=== PATIENT | female | born 1945 | race Caucasian/White ===

== ENCOUNTER → 2020-02-14 | Outpatient (CLI) | payer MEDICARE ==
[~2020-02-14] MED LIST: REGADENOSON 0.4 MG/5 ML DISP.SYRIN. IV ONE
--- NOTE | 2020-02-15 16:44 | RAD ---
MR#: [id number] Date of Study: 02/15/2020 Ordering Physician: HARDIK CHAVEZ, Referring Physician: KRYSTAL MARISCAL Tech: RT Kristal (R) (N) APPROVED REPORT Test Type: Pharmacological Stress Nurse/Tech: DENISA PELAYO Test Indications: CHEST PRESSURE, INDIGESTION Cardiac History: HTN, SMOKER, SEE EMR Medications: SEE EMR Medical History: SEE EMR Resting ECG: SR W/PROLONGED QT Resting Heart Rate: 73 bpm Resting Blood Pressure: 186/91mmHg Pretest Chest Pain: No chest pain Nurse/Tech Notes S1,S2, LUNGS CTA, DENIED CP OR SOA, PT IS ANXIOUS ABOUT THE TEST. Consent: The procedure was explained to the patient in lay terms. Informed consent was witnessed. Ang eout was entered into [employer]. History and Stress Test performed by INO Turk, ARRT (R) (N) Pharm. Details Pharmacologic stress testing was performed using 0.4mg per 5ml of regadenoson given intravenously ove r 7-10 seconds. Stress Symptoms PT'S ONLY COMPLAINT WAS THAT IT WAS DIFFICULT TO GET A DEEP BREATH, SENSATION SUBSIDED WITHIN A COUPL E OF MINUTES. DENIED CP. POST EXERCISE Reason for Termination: Infusion complete Max HR: 102 bpm Max Blood Pressure: 199/80mmHg Blood Pressure response to exercise: Normal blood pressure response during stress. Heart Rate response to exercise: NORMAL HEART RATE RESPONSE DURING STRESS Chest Pain: No. Arrhythmia: . PVC'S NOTED DURING TEST INTERPRETATION Stress EKG Conclusion: The resting EKG shows a sinus rhythm and nonspecific ST-T wave changes. The stress EKG shows no significant changes from baseline. No EKG evidence of stress-induced ischemia. Imaging Protocol IMAGE PROTOCOL: Rest Tc-99m/stress Tc-99m 2 days Rest: Stress: Viability: Radiopharm.Tc99m YudutbodmQa33m Sestamibi Ytmu01yUq 33mCi Duration 15min. 15min. Img Date 02/14/2020 02/15/2020 Inj-Img Virb67tlx. 60min. Rest Admin Site:IV - Right AntecubitalAdministrator:Aida Burnett, RT (R)(N) Stress Admin Site: IV - Left AntecubitalAdministrator: ION Truk, ARRT (R)(N) STRESS DATA End Diast. Vol.93.0mlLVEDV index BSA43.0ml End Syst. Vol.32.0mlLVESV index BSA15.0ml Myocardial Ljmt512.0gEject. Jfzvumil65.0% Stress Scores Regional WT1.00Summed WT5.00 Regional WM0.00Summed WM3.00 LV Perfusion The stress scans show a moderate inferior wall defect. The rest scans show a slight inferior wall defect. Nuclear imaging is consistent with reversible ischemia in the inferior wall. Wall Motion Left ventricular systolic function is normal with an ejection fraction of 66% and an elevated TID of 1.23. LV Perf. Quant 17 Seg. SSS12.00 17 Seg. SRS1.00 17 Seg. SDS11.00 Stress Defect Extent (% LAD)8.80Rest Defect Extent (% LAD)0.00Rev. Defect Extent (% LAD)8.80 Stress Defect Extent (% LCX) 8.80Rest Defect Extent (% LCX)0.00Rev. Defect Extent (% LCX)8.80 Stress Defect Extent (% RCA)65.60Rest Defect Extent (% RCA)0.00Rev. Defect Extent (% RCA)65.60 Stress Defect Extent (% ANTONIETA)27.00Rest Defect Extent (% ANTONIETA)0.00Rev. Defect Extent (% ANTONIETA)27.00 Conclusion 1. No EKG evidence of stress-induced ischemia. 2. Nuclear imaging is positive for reversible ischemia in the inferior wall. 3. Intact LV systolic function with an ejection fraction of 66% but an elevated TID of 1.23. 4. Moderate high risk Lexiscan nuclear stress test. Signed by : Hardik Chavez MD Electronically Approved : 02/15/2020 16:43:46
--- NOTE | 2020-02-15 17:22 | CARD ---
MR#: [id number] Date of Study: 02/15/2020 Ordering Physician: HARDIK CHAVEZ, Referring Physician: HARDIK CHAVEZ, Tech: Carri Kumari APPROVED REPORT EXAM: Two-dimensional and M-mode echocardiogram with Doppler and color Doppler. Other Information Quality : FairHR: 72bpm INDICATION Murmur RISK FACTORS Hypertension Hyperlipidemia Previous smoker (6 months ago) 2D DIMENSIONS RVDd3.6 (2.9-3.5cm)Left Atrium(2D)4.5 (1.6-4.0cm) IVSd1.1 (0.7-1.1cm)Aortic Root(2D)3.1 (2.0-3.7cm) LVDd5.9 (3.9-5.9cm)LVOT Diameter2.1 (1.8-2.4cm) PWd1.2 (0.7-1.1cm)LVDs4.0 (2.5-4.0cm) FS (%) 31.9 %SV101.3 ml LVEF(%)59.1 (>50%) Aortic Valve AoV Peak Pete.200.4cm/sAoV VTI39.1cm AO Peak GR.16.1mmHgLVOT Peak Pete.108.4cm/s LVOT VTI 22.56cmAO Mean GR.9mmHg ABAD (VMAX)1.23zc3YXC (VTI)1.93cm2 AI P 1/2 Jwrj026ed Mitral Valve MV E Psnhzehq38.5cm/sMV E Peak Gr.123mmHg MV DECEL [id number] A Vrmrrcyi387.5cm/s MV E Mean Gr.2mmHgMV ZEN15dl E/A Ratio0.6MVA (PHT)2.27cm2 TDI E/Lateral E'13.0E/Medial E'15.8 Pulmonary Valve PV Peak Yynnjqhh42.2cm/sPV Peak Grad.3mmHg Pulmonary Vein S1 Dllozpcp92.7cm/sD2 Irxphyke08.9cm/s PVa [id number] LEFT VENTRICLE The Left Ventricle is borderline dilated. There is normal left ventricular wall thickness. The systol ic function is mildly impaired. The Ejection Fraction is estimated at 45%. There is slight global hyp okinesis of the left ventricle. Transmitral Doppler flow pattern is Grade I-abnormal relaxation patte rn. RIGHT VENTRICLE The right ventricle is normal size. There is normal right ventricular wall thickness. The right ventr icular systolic function is normal. ATRIA The left atrium size is normal. The right atrium size is normal. The interatrial septum is intact wit h no evidence for an atrial septal defect or patent foramen ovale as noted on 2-D or Doppler imaging. AORTIC VALVE The aortic valve is calcified but opens well. Doppler and Color Flow revealed trace aortic regurgitat ion. Calculated aortic valve area is 1.96 cm2 with maximum pressure gradient of 18 mmHg and mean pres sure gradient of 9 mmHg. There is no significant aortic valvular stenosis. MITRAL VALVE Mitral annular calcification is mild. There is no evidence of mitral valve prolapse. There is no mitr al valve stenosis. Doppler and Color-flow revealed trace to mild mitral regurgitation. TRICUSPID VALVE The tricuspid valve is normal in structure and function. Doppler and Color Flow revealed no tricuspid valve regurgitation noted. There is no tricuspid valve stenosis. PULMONIC VALVE The pulmonic valve is not well visualized. Doppler and Color Flow revealed no pulmonic valvular regur gitation. GREAT VESSELS The aortic root is normal in size. The ascending aorta is normal in size. The IVC is normal in size a nd collapses >50% with inspiration. PERICARDIAL EFFUSION There is no evidence of significant pericardial effusion. Critical Notification Critical Value: No <Conclusion> The Left Ventricle is borderline dilated. The systolic function is mildly impaired. The Ejection Fraction is estimated at 45%. There is slight global hypokinesis of the left ventricle. Doppler and Color Flow revealed trace aortic regurgitation. There is no significant aortic valvular stenosis. Doppler and Color-flow revealed trace to mild mitral regurgitation. Doppler and Color Flow revealed no tricuspid valve regurgitation noted. Signed by : Hardik Chavez MD Electronically Approved : 02/15/2020 17:21:49
== END | disposition home or self-care (01) ==
LOC: NM 08:22
PROVIDERS: ATTEND Internal Medicine Cardiovascular Disease
DX: I08.0 Rheumatic disorders of both mitral and aortic valves (principal); I10 Essential (primary) hypertension; Z87.891 Personal history of nicotine dependence
CPT/HCPCS: 78452; A9500; 93017; 93306; J2785

== ENCOUNTER → 2020-03-06 | Outpatient (CLI) | payer MEDICARE ==
[~2020-03-06] MED LIST changes: +ASPI-630 PO; +LEVO137T3 PO; +LOSA100T14 PO; +MULT-245 PO; +OMEG-117 PO; -REGADENOSON 0.4 MG/5 ML DISP.SYRIN. IV ONE; +SIMV20TA18 PO; +TOPI50TA38 PO
== END ==
LOC: LAB 12:50
PROVIDERS: ATTEND Internal Medicine Cardiovascular Disease
DX: Z01.812 Encounter for preprocedural laboratory examination (principal); Z20.828 Contact with and (suspected) exposure to other viral communicable diseases
CPT/HCPCS: U0003-CS

== ENCOUNTER 2020-03-08 07:19 | Outpatient (CLI) | payer MEDICARE ==
[2020-03-08] VITALS (11 sets, daily range): BP systolic 120–184; BP diastolic 66–85
[~2020-03-08] VITALS: Ht 170.2 cm; Wt 113.4 kg
[2020-03-08] MEDS ORDERED: OMEG-117 PO (07:34)
[2020-03-08] MEDS ORDERED: TOPI50TA38 PO (07:34)
[2020-03-08] MEDS ORDERED: SIMV20TA18 PO (07:34)
[2020-03-08] MEDS ORDERED: ASPI-630 PO (07:34)
[2020-03-08] MEDS ORDERED: LOSA100T14 PO (07:34)
[2020-03-08] MEDS ORDERED: MULT-245 PO (07:34)
[2020-03-08] MEDS ORDERED: LIDOCAINE 1% Multi-Dose 20 ML VIAL. ONE (07:45)
[2020-03-08] MEDS ORDERED: IODIXANOL 320 MG/ML 100 ML VIAL. ONE (07:45)
[2020-03-08] MEDS ORDERED: HEPARIN for ARTERIAL LINE 1,500 ML ONE (07:46)
[2020-03-08 07:49] LABS: HEMATOCRIT 45.7 % (36.0-47.0); HEMOGLOBIN 15.4 g/dL (12.0-15.5); RED BLOOD COUNT 5.03 x10^6/uL (3.50-5.40); WHITE BLOOD COUNT 10.4 x10^3/uL (4.0-11.0)
[2020-03-08 07:57] LABS: CALCIUM 9.7 mg/dL (8.5-10.1); CREATININE 1.2 mg/dL (0.6-1.0); GFR 43.9; POTASSIUM 4.1 mmol/L (3.5-5.1)
[2020-03-08] MEDS ORDERED: VERAPAMIL 5 MG/2 ML VIAL. ONE (08:10)
[2020-03-08] MEDS ORDERED: MIDAZOLAM HCL/PF 2 MG/2 ML VIAL. ONE ×2 (08:10→09:07)
[2020-03-08] MEDS ORDERED: HEPARIN for IV BOLUS 10,000 UNIT/10 ML VIAL. ONE (08:10)
[2020-03-08] MEDS ORDERED: fentaNYL PF VIAL 100 MCG/2 ML VIAL ONE (08:10)
[2020-03-08] MEDS ORDERED: LEVO137T3 PO (08:11)
[2020-03-08] MEDS ORDERED: NITROGLYCERIN 200 MCG/2 ML SYRINGE FOR CATH/VASC LAB. ONE (08:11)
[2020-03-08 08:14] LABS: PROTHROMBIN TIME PATIENT 12.7 SEC (11.7-14.0)
--- NOTE | 2020-03-08 08:48 | PDOC ---
MODERATE SEDATION ASSESSMENT RISKS/ALTERNATIVES Risks/Alternatives Risks and alternatives of this type of sedation and procedure discussed with: RISK/ALTERNATIVES: Patient H & P ON CHART H & P H & P on chart and reviewed for co-morbid conditions and appropriate labs. H&P ON CHART: Yes STATUS PREG STATUS ASSESSED: Yes MEDS/ALLERGIES REVIEWED Meds/Allergies Reviewed Medications and Allergies including time and route of recently administered narcotics and sedatives. MEDS/ALLERGIES REVIEWED: Yes ASA RATING ASA RATING: II AIRWAY ASSESSMENT Airway Assessment Airway patency, oral function limitations, presence of caps, crowns, dentures, partials, and ability to extend neck assessed. AIRWAY ASSESSMENT: Yes MALLAMPATI SCORE MALLAMPATI SCORE: II PRE-SEDATION ASSESSMENT PRE-SEDATION ASSESSMENT: Yes HARDIK PEACOCK MD Mar 08, 2020 08:48
[2020-03-08] MEDS ORDERED: IODIXANOL 320 MG/ML 100 ML VIAL. IART ONE (09:30)
[2020-03-08] MEDS ORDERED: HEPARIN for IV BOLUS 10,000 UNIT/10 ML VIAL. IART ONE (09:30)
[2020-03-08] MEDS ORDERED: MIDAZOLAM HCL/PF 2 MG/2 ML VIAL. IV ONE (09:30)
[2020-03-08] MEDS ORDERED: LIDOCAINE 1% Multi-Dose 20 ML VIAL. INJ ONE (09:30)
[2020-03-08] MEDS ORDERED: fentaNYL PF VIAL 100 MCG/2 ML VIAL IV ONE (09:30)
[2020-03-08] MEDS ORDERED: VERAPAMIL 5 MG/2 ML VIAL. IART ONE (09:30)
[2020-03-08] MEDS ORDERED: NITROGLYCERIN 200 MCG/2 ML SYRINGE FOR CATH/VASC LAB. IART ONE (09:30)
--- NOTE | 2020-03-08 13:30 | NUR ---
Discharge Note: MENA BYRD Discharge instructions and discharge home medications reviewed with Family Member and a copy given. All questions have been answered and understanding verbalized. Patient ate lunch with no difficulties. The following instructions and handouts were given: Moderate sedation, radial site care and cardiac diet. Discontinued lines and drains: Left Forearm PIV, dressing clean dry intact. Patient discharged to home with son via wheelchair to private vehicle. Dr. Benedict will call patient on Wednesday, March 11 with instruction for Open Heart surgery to be done at [facility].
--- NOTE | 2020-03-08 16:43 | CARD ---
MR#: [id number] Date of Study: 03/08/2020 Ordering Physician: HARDIK CHAVEZ, Referring Physician: HARDIK CHAVEZ, Tech: FEDERICO ORTIZYOHANNESROSA M RTR APPROVED REPORT Procedures Left heart catheterization Selective left ventriculogram Selective coronary angiogram The patient is a 74-year-old female with a history of hypertension and hyperlipidemia. Her work-up s howed an echo with mildly decreased LV systolic function with an ejection fraction of 45% and trace t o mild mitral regurgitation. A nuclear stress test showed reversible ischemia in the inferior wall. Heart catheterization was recommended. Risks and benefits were discussed. The patient agreed to pr oceed. After informed consent was obtained the patient was brought to the heart catheterization lab. The ar ea of the right radial artery was prepared in the usual manner with Betadine, sterile draping and loc al anesthetic after normal Yordan's test. A quick cath system was used to engage the right radial art saturnino, a wire placed and a 6 Barbadian sheath placed over the wire. The standard mixture of heparin and a ntispasm medications was administered. A 6 Barbadian JL 3.5 diagnostic cath was advanced the ascending order over a J-wire. It was then used to engage the left coronary system and sequential injections i n various views were obtained. Using the same technique a 6 Barbadian Mike right diagnostic cathete r was advanced to the ascending aorta and used to engage the right coronary artery with an injection performed. A pigtail catheter was then advanced to the left ventricle. Pressures were measured. A 30 degree SÁNCHEZ left ventriculogram was performed. Pullback pressures were measured. The catheter was removed from the patient. The sheath was removed and sealed in the standard manner with a TR band. The patient had no immediate complications. Hemodynamics. LV pressure of 136/6/14. Aortic root pressure of 134/86 Coronaries. Left main. The left main had no lesions. Left anterior descending. LAD was a moderate size vessel with normal distribution. It had a very pr oximal 50% lesion and a proximal to mid lesion of 85%. Left circumflex. The left circumflex was a moderate size vessel. It had a proximal lesion of 35% an d obtuse 1 lesion of approximately 70%. Right coronary artery. The right coronary artery was proximally occluded. Distally starting just be fore the bifurcation there was significant collateral flow from the left system. Left ventriculogram. The left ventricle appeared to have mildly decreased systolic function the inferior wall. Ejection f raction was 45%. There was slight to mild mitral regurgitation secondary to catheter position. <Conclusion> Three-vessel coronary artery disease including a significant proximal LAD lesion. Proximally occluded RCA with reconstitution just prior to the bifurcation via left system collateral s. Mildly decreased LV systolic function with an ejection fraction of 45%. We will continue medical treatment. Will have the patient reviewed for bypass surgery. Signed by : Hardik Chavez MD Electronically Approved : 03/08/2020 16:42:41
== END 2020-03-08 13:45 | disposition home or self-care (01) ==
LOC: CCL 07:19
PROVIDERS: ATTEND Internal Medicine Cardiovascular Disease
DX: I25.10 Atherosclerotic heart disease of native coronary artery without angina pectoris (principal); I34.0 Nonrheumatic mitral (valve) insufficiency; I10 Essential (primary) hypertension; E78.5 Hyperlipidemia, unspecified; Z87.891 Personal history of nicotine dependence; Z79.82 Long term (current) use of aspirin; Z79.899 Other long term (current) drug therapy
CPT/HCPCS: 36415; 80048; 85027; 85610; 93458; 99152; 99153; C1769; C1892; J1644; J2250; J3010; J3490; Q9967

== ENCOUNTER → 2020-08-01 | Outpatient (CLI) | payer MEDICARE ==
[2020-03-08 12:00] VITALS: BP 147/85
--- NOTE | 2020-08-01 15:12 | RAD ---
EXAM: Chest, 2 views. HISTORY: Chest pressure. COMPARISON: 04/23/2015 FINDINGS: 2 views of the chest are obtained. There is a small nodular opacity overlying the right upp er lobe. There is no consolidation, pleural effusion or pneumothorax. The heart is normal in size. Th ere are chronic appearing interstitial changes. IMPRESSION: 1. Right upper lobe nodule. The possibility of neoplasm is not excluded. This can be better assessed with a CT. 2. Chronic appearing interstitial changes. Electronically signed by: Aida Huang MD (08/01/2020 3:10 PM) [id number]
== END ==
LOC: RAD 14:22
PROVIDERS: ATTEND Internal Medicine Cardiovascular Disease
DX: R91.1 Solitary pulmonary nodule (principal); R07.89 Other chest pain
CPT/HCPCS: 71046

== ENCOUNTER → 2020-08-21 | Outpatient (CLI) | payer MEDICARE ==
[2020-03-08 12:00] VITALS: BP 147/85
--- NOTE | 2020-08-22 08:59 | RAD ---
PQRS Compliance Statement: One or more of the following individualized dose reduction techniques were utilized for this examinat ion: 1. Automated exposure control 2. Adjustment of the mA and/or kV according to patient size 3. Use of iterative reconstruction technique CT THORAX WO 08/21/2020 12:45 PM Indication: Lung nodule COMPARISON: None available. TECHNIQUE: Multiple axial CT images of the chest were obtained without intravenous contrast. Coronal and sagittal reformats are provided. FINDINGS: There is a 1.5 x 1.5 cm lobulated solid noncalcified pulmonary nodule in the right upper lobe (series 3, image 69). There is a 4 mm solid noncalcified pulmonary nodule in the right lung apex (series 3, image 47). There is an additional tubular nodule within the anterior basal segment right lower lobe m easuring 1.4 cm (series 3, image 179). Bronchial wall thickening is compatible with nonspecific bronc hitis. There are no pleural effusions or pulmonary vascular congestion. There is mild subpleural inte rstitial prominence with upper lung zone predominance. Thyroid gland is not definitively visualized. Right superior paratracheal lymph node measures 7 mm by short axis. Precarinal lymph node has normal fatty hilum measuring 1.2 cm. Prevascular lymph node measures 8 mm. Three-vessel coronary vascular ca lcifications are identified. Heart size within normal limits. No pericardial effusion. Gallbladder ambrose rgically absent. No suspicious hepatic lesion. Spleen, and left adrenal gland are normal. There is a right adrenal nodule (36 Hounsfield units) measuring 2.0 x 1.2 cm, indeterminate. Issues osseous lesi on is identified. IMPRESSION: Solid noncalcified pulmonary nodular opacities identified within the right lung measuring up to 1.5 x 1.5 cm the right upper lobe. Further characterization with PET/CT or tissue sampling is recommended. Differential considerations include infectious and inflammatory process versus neoplastic etiology ( i.e. primary lung malignancy). Noncalcified granulomatous disease is a consideration given upper lung zone predominant subpleural interstitial changes. Mild centrilobular pulmonary emphysema and moderate nonspecific bronchitis. Electronically signed by: Emilie Gee MD (08/22/2020 8:56 AM) [id number]
== END ==
LOC: CT 12:43
PROVIDERS: ATTEND Family Medicine
DX: J43.2 Centrilobular emphysema (principal); R91.1 Solitary pulmonary nodule
CPT/HCPCS: 71250

== ENCOUNTER → 2020-09-20 | Outpatient (CLI) | payer MEDICARE ==
[2020-03-08 12:00] VITALS: BP 147/85
--- NOTE | 2020-09-20 13:54 | RAD ---
EXAM: Dual modality PET-CT Scan DATE: 09/20/2020 RADIOPHARMACEUTICAL: 13.99 mCi F-18 fluorodeoxyglucose (FDG) IV. CLINICAL HISTORY: Pulmonary nodule. COMPARISON: 08/21/2020. TECHNIQUE: Approximately 45 minutes after tracer administration, routine, attenuation-corrected Posit ewa Emission Tomography (PET) images were obtained from the level of the base of the skull through th e level of the mid thighs. Tomographic reconstructions are reviewed in coronal, transaxial and sagitt al planes. Non-contrast CT imaging was performed for attenuation correction and localization purpose s only. These images do not constitute a diagnostic-quality CT examination and were not used to diag nose disease independently of the PET images. The blood glucose level was 103 mg/dL at the time of FDG administration. *One or more of the following individualized dose reduction techniques were utilized for this examina tion: 1. Automated exposure control. 2. Adjustment of the mA and/or kV according to patient size. 3. Use of iterative reconstruction technique. FINDINGS: There is increased radiotracer activity within maximum SUV of 6.4 associated with a right u pper lobe pulmonary nodule measuring approximately 1.7 cm. There is mild radiotracer activity within maximum SUV of 2.6 associated with a 2.0 cm right paratracheal lymph node. There is no significant ra diotracer activity above the blood pool associated with a 6 mm nodule within the medial right upper l obe, likely due to small to characterize with PET. There is also no abnormal tracer activity above th e blood pool within additional mediastinal or hilar lymph nodes. The CT portion of the exam demonstrates a predominantly solid nodule with irregular margins and surro unding groundglass within the posterior right upper lobe measuring 1.7 cm. This is similar compared t o the recent CT, allowing for differences in imaging technique. There is also a 6 mm nodule within th e medial right lung apex which is stable in appearance. Evaluation for additional nodules demonstrate d on the prior CT is limited due to respiratory motion during image acquisition. There is suspected c hronic interstitial change with superimposed atelectasis. There is no consolidation. There is no pleu ral effusion or pneumothorax. There is cardiomegaly. There is aortic and coronary artery atherosclerosis. There is calcification of the aortic valve. There is an enlarged right paratracheal lymph node measuring 2.0 cm in long axis. There is a prominent prevascular lymph node measuring 2.1 cm in long axis. There are also prominent b ilateral hilar and subcarinal lymph nodes which are nonspecific. No hepatic lesion is seen. The gallbladder, pancreas, spleen and left adrenal gland are unremarkable. There is nodular thickening of the right adrenal gland, difficult to assess in the absence of contra st. There is a partially duplicated right renal collecting system with associated cortical lobulation . Evaluation for renal lesions is limited in the absence of contrast. There is no bowel obstruction. There is sigmoid diverticulosis. The bladder is unremarkable. The uterus is absent. There is no patho logically enlarged retroperitoneal or mesenteric lymph node. The visualized portions of the brain are unremarkable. There is no pathologically enlarged neck lymph node. There are degenerative changes throughout the spine. No suspicious osseous lesion is seen. The re are few scattered suspected tiny bone islands. IMPRESSION: 1. 1.7 cm irregular right upper lobe pulmonary nodule demonstrating restricted tracer activity within maximum SUV of 6.4. The lesion morphology and degree of greater tracer activity favors a neoplastic etiology. 2. Mild nonspecific increased retained tracer activity within a prominent right paratracheal lymph no de with an SUV of 2.6. This remains indeterminant. There is also an indeterminant 6 mm right upper lo be pulmonary nodule which is too small to characterize with PET and there are additional nonspecific lymph nodes within the mediastinum and hilar regions which do not demonstrate radiotracer activity ab ove the blood pool. 3. Chronic appearing interstitial changes, better assessed on the prior CT due to differences in tech nique and significant respiratory motion on the current exam. Electronically signed by: Aida Huang MD (09/20/2020 1:51 PM) [id number]
== END ==
LOC: PETSC 10:39
PROVIDERS: ATTEND Internal Medicine Critical Care Medicine
DX: R91.1 Solitary pulmonary nodule (principal); I25.10 Atherosclerotic heart disease of native coronary artery without angina pectoris; I70.0 Atherosclerosis of aorta; I51.7 Cardiomegaly
CPT/HCPCS: 78815; A9552

== ENCOUNTER → 2021-08-11 | Outpatient (CLI) | payer BC, MEDICARE ==
[2020-03-08 12:00] VITALS: BP 147/85
--- NOTE | 2021-08-11 16:26 | RAD ---
PQRS Compliance Statement: One or more of the following individualized dose reduction techniques were utilized for this examinat ion: 1. Automated exposure control 2. Adjustment of the mA and/or kV according to patient size 3. Use of iterative reconstruction technique Exam performed: CT chest without contrast. HISTORY: History of pulmonary nodule. DATE OF SERVICE: 08/11/2021. COMPARISON: CT chest from 08/21/2020. Given medicine PET scan from 09/20/2020. TECHNIQUE: Contiguous helical acquisitions are obtained through the chest without IV contrast. Sagitt al and coronal reformatted images are obtained and reviewed. FINDINGS: Structures at the thoracic inlet including both lobes of the thyroid gland appear grossly normal. Oumar pacified neck and intrathoracic great vessels appear normal in course and caliber. Atheromatous aorti c and coronary calcification is seen. No pathological mediastinal or hilar adenopathy is noted. Inter brit resection of previously seen right upper lobe pulmonary nodule with a linear opacity in the regio n of previously seen nodule likely scarring. There are pleural-based linear opacities in both lower l obes. There is a broad-based pleural-based opacity in the lateral right lower lobe perhaps an area of scarring. There is no pleural effusion or pneumothorax. Limited evaluation of the upper abdominal structures is unremarkable. Bones are normal. IMPRESSION: Interval resection of previously seen nodule in the right upper lobe. No additional pulmonary nodules or abnormal lymphadenopathy seen. Diffuse atheromatous aortic and coronary calcification. Electronically signed by: Kalani Cortez MD (08/11/2021 4:23 PM) [facility]
== END ==
LOC: CT 11:20
PROVIDERS: ATTEND Internal Medicine Critical Care Medicine
DX: R91.1 Solitary pulmonary nodule (principal); I25.10 Atherosclerotic heart disease of native coronary artery without angina pectoris; I70.0 Atherosclerosis of aorta
CPT/HCPCS: 71250